=== PATIENT | male | born 1955 | race Caucasian/White ===

== ENCOUNTER 2021-03-02 19:48 | Inpatient (IN) | payer BC, MEDICAID, OTHER ==
[~2021-03-02] VITALS: Ht 180.3 cm; Wt 88.8 kg
[2021-03-02 23:00] VITALS: BP 133/76
[2021-03-02] MEDS ORDERED: magnesium Cl slow-release 64mg tablet PO PRN (23:45)
[2021-03-02] MEDS ORDERED: acetaminophen 325mg tablet PO PRN (23:45)
[2021-03-02] MEDS ORDERED: magnesium hydroxide 30ml (MOM) UD suspension PO PRN (23:45)
[2021-03-02] MEDS ORDERED: potassium CL 10mEq/100ml bag 100 ML IV PRN (23:45)
[2021-03-02] MEDS ORDERED: magnesium 2GM in 50ml NS 50 ML IV PRN (23:45)
[2021-03-02] MEDS ORDERED: mag hydrox/Alum hydrox/simeth 30ml oral suspension PO PRN (23:45)
[2021-03-02] MEDS ORDERED: potassium Cl 20 mEq SR tablet PO PRN ×2 (23:45)
[2021-03-02] MEDS ORDERED: magnesium 4gm in 100ml NS 100 ML IV PRN (23:45)
[2021-03-02] MEDS ORDERED: ondansetron/PF 4mg/2ml inj IV PRN (23:45)
--- NOTE | 2021-03-03 | NUR ---
Pt does not take any medications Addendum: 03/03/21 at 0444 by Zenaida Feldman RN Amended: Links added.
--- NOTE | 2021-03-03 06:59 | NUR ---
Patient in room PCU 3008. I have received report from Zenaida NULL and had the opportunity to ask questions and assume patient care.
[2021-03-03 07:16] LABS: BASOPHILS % (AUTO) 0.3 % (0-1); EOSINOPHILS % (AUTO) 0 % (0-6); HEMATOCRIT 35.2 % (42.0-52.0); HEMOGLOBIN 12.5 g/dl (14.0-17.9); LYMPHOCYTES # (AUTO) 0.4 X10'3 (1.1-4.8); LYMPHOCYTES % (AUTO) 4.6 % (21-51); MEAN CORPUSCULAR HEMOGLOBIN 30.8 PG (27.0-31.0); MEAN CORPUSCULAR HGB CONC 35.5 g/dL (33.0-36.5); MEAN CORPUSCULAR VOLUME 86.6 FL (78-98); MEAN PLATELET VOLUME 8.1 FL (7.4-10.4); MONOCYTES # (AUTO) 0.4 X10'3 (0-0.9); MONOCYTES % (AUTO) 4.1 % (2-12); NEUTROPHILS # (AUTO) 8.9 X10'3 (1.8-7.7); PLATELET COUNT 321 X10'3 (140-440); RED BLOOD COUNT 4.07 X10'6 (4.70-6.10); RED CELL DISTRIBUTION WIDTH 13.3 % (11.5-14.5); WHITE BLOOD COUNT 9.7 X10'3 (4.5-11.0)
[2021-03-03 07:39] LABS: ALANINE AMINOTRANSFERASE 58 U/L (12-78); ALBUMIN 2.1 G/DL (3.4-5.0); ALBUMIN/GLOBULIN RATIO 0.5 (1.1-1.5); ALKALINE PHOSPHATASE 46 IU/L (46-116); ANION GAP 10 (8-16); ASPARTATE AMINO TRANSFERASE 31 U/L (10-37); BILIRUBIN,TOTAL 0.3 MG/DL (0.1-1.0); BLOOD UREA NITROGEN 24 MG/DL (7-18); BUN/CREATININE RATIO 26.4 (5.4-32.0); CALCIUM 8.9 MG/DL (8.5-10.1); CHLORIDE 110 MMOL/L (99-107); CREATININE 0.91 MG/DL (0.60-1.10); GLUCOSE 151 MG/DL (70-104); MAGNESIUM 2.6 MG/DL (1.5-2.4); POTASSIUM 4.1 MMOL/L (3.5-5.1); SODIUM 144 MMOL/L (135-145); TOTAL CARBON DIOXIDE 24.1 MMOL/L (24-32); TOTAL PROTEIN 6.6 G/DL (6.4-8.2); eGFR 84 ML/MIN
[2021-03-03] MEDS: docusate sod 100mg capsule PO SCH ×2 (07:45→20:00)
[2021-03-03] MEDS ORDERED: enoxaparin 60mg/0.6ml syringe SUBCUT SCH (08:00)
[2021-03-03] MEDS: K and/or MAG REPLACEMENT MC SCH ×2 (08:00→20:00)
[2021-03-03 08:07] VITALS: BP 120/85
[2021-03-03] MEDS ORDERED: enoxaparin 40mg/0.4ml syringe SUBCUT SCH (08:30)
[2021-03-03 09:18] LABS: C-REACTIVE PROTEIN 11.01 MG/DL (0.0-0.5)
[2021-03-03] MEDS: dexamethasone inj 6 MG in normal saline 50ml IV soln 50 ML IV SCH ×2 (10:01→21:48)
[2021-03-03 11:00] VITALS: BP 114/85
[2021-03-03 15:00] VITALS: BP 116/77
[2021-03-03 18:00] VITALS: BP 114/74
--- NOTE | 2021-03-03 18:44 | NUR ---
Problems reprioritized. Patient report given, questions answered & plan of care reviewed with Richar NULL.
[2021-03-03] MEDS ORDERED: ALBUTEROL INHALER 1 PUFF/90 MCG INHALER IH PRN (19:05)
[2021-03-03] MEDS: enoxaparin 40mg/0.4ml syringe SUBCUT SCH (21:49)
[2021-03-03 22:00] VITALS: BP 125/72
[2021-03-04 02:00] VITALS: BP 112/74
--- NOTE | 2021-03-04 06:40 | NUR ---
Patient in room PCU 3008. I have received report from TENNILLE KAY and had the opportunity to ask questions and assume patient care.
[2021-03-04 06:58] LABS: BASOPHILS % (AUTO) 0.2 % (0-1); EOSINOPHILS % (AUTO) 0 % (0-6); HEMATOCRIT 35.6 % (42.0-52.0); HEMOGLOBIN 12.4 g/dl (14.0-17.9); LYMPHOCYTES # (AUTO) 0.5 X10'3 (1.1-4.8); LYMPHOCYTES % (AUTO) 4.2 % (21-51); MEAN CORPUSCULAR HGB CONC 34.8 g/dL (33.0-36.5); MEAN CORPUSCULAR VOLUME 86.1 FL (78-98); MEAN PLATELET VOLUME 7.7 FL (7.4-10.4); MONOCYTES # (AUTO) 0.5 X10'3 (0-0.9); MONOCYTES % (AUTO) 4.1 % (2-12); NEUTROPHILS # (AUTO) 10.9 X10'3 (1.8-7.7); NEUTROPHILS % (AUTO) 91.5 % (42-75); PLATELET COUNT 385 X10'3 (140-440); RED BLOOD COUNT 4.14 X10'6 (4.70-6.10); RED CELL DISTRIBUTION WIDTH 13.2 % (11.5-14.5); WHITE BLOOD COUNT 11.9 X10'3 (4.5-11.0)
[2021-03-04 07:14] LABS: D-DIMER 1.16 MG/L FEU (0-0.50)
[2021-03-04] MEDS: docusate sod 100mg capsule PO SCH ×4 (07:36→20:00)
[2021-03-04] MEDS: dexamethasone inj 6 MG in normal saline 50ml IV soln 50 ML IV SCH (07:36)
[2021-03-04] MEDS: enoxaparin 40mg/0.4ml syringe SUBCUT SCH ×2 (07:36→21:14)
[2021-03-04 07:38] LABS: ALANINE AMINOTRANSFERASE 67 U/L (12-78); ALBUMIN 2.1 G/DL (3.4-5.0); ALBUMIN/GLOBULIN RATIO 0.5 (1.1-1.5); ALKALINE PHOSPHATASE 50 IU/L (46-116); ANION GAP 8 (8-16); ASPARTATE AMINO TRANSFERASE 32 U/L (10-37); BILIRUBIN,TOTAL 0.3 MG/DL (0.1-1.0); BLOOD UREA NITROGEN 30 MG/DL (7-18); BUN/CREATININE RATIO 35.7 (5.4-32.0); C-REACTIVE PROTEIN 5.37 MG/DL (0.0-0.5); CALCIUM 8.7 MG/DL (8.5-10.1); CHLORIDE 111 MMOL/L (99-107); CREATININE 0.84 MG/DL (0.60-1.10); GLUCOSE 130 MG/DL (70-104); MAGNESIUM 2.8 MG/DL (1.5-2.4); POTASSIUM 4.3 MMOL/L (3.5-5.1); SODIUM 145 MMOL/L (135-145); TOTAL CARBON DIOXIDE 26.1 MMOL/L (24-32); TOTAL PROTEIN 6.4 G/DL (6.4-8.2); eGFR > 90 ML/MIN
[2021-03-04 07:46] VITALS: BP 116/81
[2021-03-04] MEDS: K and/or MAG REPLACEMENT MC SCH ×2 (08:00→20:00)
[2021-03-04 11:33] VITALS: BP 130/86
[2021-03-04 15:00] VITALS: BP 122/77
--- NOTE | 2021-03-04 18:44 | NUR ---
Problems reprioritized. Patient report given, questions answered & plan of care reviewed with RIRI RN.
[2021-03-04 19:00] VITALS: BP 127/88
[2021-03-04] MEDS: dexamethasone sod phosphate 10mg/ml inj IV SCH (21:13)
[2021-03-04] MEDS: guaiFENesin ER 600mg tablet PO SCH (21:14)
[2021-03-04 23:00] VITALS: BP 120/82
[2021-03-05 02:45] VITALS: BP 106/76
[2021-03-05 06:58] LABS: BASOPHILS % (AUTO) 0.3 % (0-1); EOSINOPHILS % (AUTO) 0 % (0-6); HEMATOCRIT 37.8 % (42.0-52.0); HEMOGLOBIN 12.8 g/dl (14.0-17.9); LYMPHOCYTES # (AUTO) 0.6 X10'3 (1.1-4.8); LYMPHOCYTES % (AUTO) 6.7 % (21-51); MEAN CORPUSCULAR HEMOGLOBIN 29.8 PG (27.0-31.0); MEAN CORPUSCULAR VOLUME 87.7 FL (78-98); MEAN PLATELET VOLUME 7.9 FL (7.4-10.4); MONOCYTES # (AUTO) 0.6 X10'3 (0-0.9); MONOCYTES % (AUTO) 5.9 % (2-12); NEUTROPHILS # (AUTO) 8.5 X10'3 (1.8-7.7); NEUTROPHILS % (AUTO) 87.1 % (42-75); PLATELET COUNT 416 X10'3 (140-440); RED BLOOD COUNT 4.31 X10'6 (4.70-6.10); RED CELL DISTRIBUTION WIDTH 13.4 % (11.5-14.5); WHITE BLOOD COUNT 9.8 X10'3 (4.5-11.0)
[2021-03-05 07:07] LABS: D-DIMER 1.47 MG/L FEU (0-0.50)
[2021-03-05 07:28] LABS: ALANINE AMINOTRANSFERASE 55 U/L (12-78); ALBUMIN 2.2 G/DL (3.4-5.0); ALBUMIN/GLOBULIN RATIO 0.5 (1.1-1.5); ALKALINE PHOSPHATASE 58 IU/L (46-116); ANION GAP 9 (8-16); ASPARTATE AMINO TRANSFERASE 22 U/L (10-37); BILIRUBIN,TOTAL 0.4 MG/DL (0.1-1.0); BLOOD UREA NITROGEN 23 MG/DL (7-18); BUN/CREATININE RATIO 26.7 (5.4-32.0); C-REACTIVE PROTEIN 2.74 MG/DL (0.0-0.5); CALCIUM 8.4 MG/DL (8.5-10.1); CHLORIDE 110 MMOL/L (99-107); CREATININE 0.86 MG/DL (0.60-1.10); GLUCOSE 131 MG/DL (70-104); MAGNESIUM 2.6 MG/DL (1.5-2.4); POTASSIUM 4.8 MMOL/L (3.5-5.1); SODIUM 144 MMOL/L (135-145); TOTAL PROTEIN 6.3 G/DL (6.4-8.2); eGFR 90 ML/MIN
--- NOTE | 2021-03-05 07:34 | NUR ---
Initial: Pt admitted w/ acute respiratory failure secondary to Covid per EMR. Pt currently on 15L nonrebreather per MD note. PO intake is good w/ mostly 75-100% of meals, though will provide double protein w/ meals to help meet increased protein needs. LBM 03/04 receiving routine and PRN bowel care. Will continue to monitor. Recs: 1. Continue Regular diet as tolerated 2. Double Protein BIDBD, Smoothie WL 3. Bowel care per rx 4. Weekly wts Addendum: 03/05/21 at [address] Amended: Links added.
[2021-03-05] MEDS: K and/or MAG REPLACEMENT MC SCH ×2 (08:00→19:34)
[2021-03-05] MEDS: dexamethasone sod phosphate 10mg/ml inj IV SCH ×2 (08:45→19:34)
[2021-03-05] MEDS: docusate sod 100mg capsule PO SCH ×2 (08:46→19:34)
[2021-03-05] MEDS: enoxaparin 40mg/0.4ml syringe SUBCUT SCH ×2 (08:46→19:34)
[2021-03-05] MEDS: guaiFENesin ER 600mg tablet PO SCH ×2 (08:46→19:34)
--- NOTE | 2021-03-05 12:04 | NUR ---
patient alert x4 , vitals stable, on 5L via c/ Addendum: 03/05/21 at 1213 by Giuliano Feldman RN patient alert x4, vitals stable, on 5L via NC. denies any distress. all morning meds given. to be transfered to 4020. report given to Joseph
[2021-03-05 14:00] VITALS: BP 117/80
[2021-03-05 18:00] VITALS: BP 107/77
--- NOTE | 2021-03-05 18:25 | NUR ---
Problems reprioritized. Patient report given, questions answered & plan of care reviewed with Arlyn NULL.
--- NOTE | 2021-03-05 21:56 | NUR ---
educated patient on activity with oxygen levels dropping. made plan to use urinal on far side of bed for privacy instead of walking to bathroom. desat on 4L to 84%. recovered quickly - increased to 6L. replaced o2 sensor on finger. reading 92%. patient will try to prone to sleep tonight.
[2021-03-05 22:00] VITALS: BP 110/79
[2021-03-06 02:00] VITALS: BP 117/80
--- NOTE | 2021-03-06 03:00 | NUR ---
Received report from Cassidy NULL. I have reviewed and agree with all interventions, assessments performed and documented by Cassidy .
[2021-03-06 06:00] VITALS: BP 108/65
--- NOTE | 2021-03-06 06:36 | NUR ---
Problems reprioritized. Patient report given, questions answered & plan of care reviewed with Sunil NULL.
[2021-03-06 06:40] LABS: BASOPHILS % (AUTO) 0.3 % (0-1); EOSINOPHILS % (AUTO) 0 % (0-6); HEMOGLOBIN 12.7 g/dl (14.0-17.9); LYMPHOCYTES # (AUTO) 0.7 X10'3 (1.1-4.8); LYMPHOCYTES % (AUTO) 8.4 % (21-51); MEAN CORPUSCULAR HEMOGLOBIN 30.4 PG (27.0-31.0); MEAN CORPUSCULAR HGB CONC 34.3 g/dL (33.0-36.5); MEAN CORPUSCULAR VOLUME 88.6 FL (78-98); MEAN PLATELET VOLUME 7.9 FL (7.4-10.4); MONOCYTES # (AUTO) 0.5 X10'3 (0-0.9); MONOCYTES % (AUTO) 5.8 % (2-12); NEUTROPHILS # (AUTO) 7.2 X10'3 (1.8-7.7); NEUTROPHILS % (AUTO) 85.5 % (42-75); PLATELET COUNT 372 X10'3 (140-440); RED BLOOD COUNT 4.17 X10'6 (4.70-6.10); RED CELL DISTRIBUTION WIDTH 13.4 % (11.5-14.5); WHITE BLOOD COUNT 8.5 X10'3 (4.5-11.0)
[2021-03-06 06:44] LABS: D-DIMER 1.63 MG/L FEU (0-0.50)
[2021-03-06 06:51] LABS: ALANINE AMINOTRANSFERASE 44 U/L (12-78); ALBUMIN 2.1 G/DL (3.4-5.0); ALBUMIN/GLOBULIN RATIO 0.5 (1.1-1.5); ALKALINE PHOSPHATASE 48 IU/L (46-116); ANION GAP 6 (8-16); ASPARTATE AMINO TRANSFERASE 18 U/L (10-37); BILIRUBIN,TOTAL 0.4 MG/DL (0.1-1.0); BLOOD UREA NITROGEN 22 MG/DL (7-18); BUN/CREATININE RATIO 23.7 (5.4-32.0); C-REACTIVE PROTEIN 1.55 MG/DL (0.0-0.5); CALCIUM 8.4 MG/DL (8.5-10.1); CHLORIDE 111 MMOL/L (99-107); CREATININE 0.93 MG/DL (0.60-1.10); GLUCOSE 115 MG/DL (70-104); MAGNESIUM 2.7 MG/DL (1.5-2.4); POTASSIUM 5.2 MMOL/L (3.5-5.1); SODIUM 145 MMOL/L (135-145); TOTAL CARBON DIOXIDE 28.2 MMOL/L (24-32); eGFR 82 ML/MIN
[2021-03-06] MEDS: enoxaparin 40mg/0.4ml syringe SUBCUT SCH (08:22)
[2021-03-06] MEDS: dexamethasone sod phosphate 10mg/ml inj IV SCH (08:22)
[2021-03-06] MEDS: guaiFENesin ER 600mg tablet PO SCH (08:23)
[2021-03-06] MEDS: K and/or MAG REPLACEMENT MC SCH (08:23)
[2021-03-06] MEDS: docusate sod 100mg capsule PO SCH (08:23)
[2021-03-06 10:00] VITALS: BP 101/65
--- NOTE | 2021-03-06 10:50 | NUR ---
O2 Sat at rest on room air:_88__% If below 89%: Recovery O2 Sat at rest on _3__LPM:___%:___% via____nc (mask/nasal cannula, etc..) No further documentation is necessary. If O2 Sat did not drop below 89% on room air,ambulate patient on room air. O2 Sat while ambulating on room air:___% Recovery O2 Sat while ambulating on ___LPM:___% No further documentation is necessary. If patient does not drop below 89% while ambulating, he/she does not qualify for home O2.
[2021-03-06] MEDS ORDERED: ALBU6.7H9 IH (11:05)
[2021-03-06] MEDS ORDERED: DEC4T PO (11:05)
[2021-03-06] MEDS ORDERED: APIX5TAB3 PO (11:05)
== END 2021-03-06 11:28 | disposition home or self-care (01) | DRG 137 ==
LOC: PCU 3S 22:59 → UNDOADMIN 22:59 → PCU 3S 23:47 → ORTHO 4S 03-05 12:50
PROVIDERS: ADMIT Internal Medicine; ATTEND Family Medicine
DX: U07.1 COVID-19 (principal); J96.01 Acute respiratory failure with hypoxia; J12.82 Pneumonia due to coronavirus disease 2019; E43 Unspecified severe protein-calorie malnutrition; D72.810 Lymphocytopenia; Z79.899 Other long term (current) drug therapy; Z68.27 Body mass index [BMI] 27.0-27.9, adult
CPT/HCPCS: 36415; 80053; 83735; 85025; 85379; 86140; 87081; 87635; 94668; G0378; J1100; J1650; J3490; U0003